=== PATIENT | male | born 1995 | race Two or more races ===

== ENCOUNTER 2017-06-08 16:43 | Emergency (ER) | payer OTHER ==
[~2017-06-08] VITALS: Ht 182.9 cm; Wt 90.0 kg
[2017-06-08 16:50] VITALS: Ht 182.9 cm; Wt 90.0 kg
[2017-06-08] MEDS ORDERED: METOCLOPRAMIDE 10 MG INJ IV STA (17:27)
[2017-06-08] MEDS ORDERED: DIPHENHYDRAMINE 50 MG INJ IV ONE (17:30)
[2017-06-08 18:23] LABS: ADD SCAN DIFF NO
[2017-06-08 18:24] LABS: BASOPHILS % 0.2 % (0.0-2.0); EOSINOPHILS % 0.2 % (0.0-7.0); HEMATOCRIT 45.6 % (42.0-52.0); HEMOGLOBIN 15.6 g/dl (14.0-18.0); LYMPHOCYTES # 1.9 10^3/ul (0.8-2.9); LYMPHOCYTES % 14.3 % (15.0-51.0); MEAN CORPUSCULAR HEMOGLOBIN 30.2 pg (29.0-33.0); MEAN CORPUSCULAR HGB CONC 34.2 g/dl (32.0-37.0); MEAN CORPUSCULAR VOLUME 88.2 fl (82.0-101.0); MEAN PLATELET VOLUME 8.4 fl (7.4-10.4); MONOCYTE # 1.4 10^3/ul (0.3-0.9); MONOCYTES % 10.5 % (0.0-11.0); NEUTROPHIL # 9.8 10^3/ul (1.6-7.5); NEUTROPHILS % 74.4 % (39.0-77.0); PLATELET COUNT 232 10^3/UL (140-415); RED BLOOD COUNT 5.17 10^6/ul (4.70-6.10); RED CELL DISTRIBUTION WIDTH 12.1 % (11.5-14.5); WHITE BLOOD COUNT 13.2 10^3/ul (4.8-10.8)
[2017-06-08 18:44] LABS: ALBUMIN 5.2 g/dl (3.3-4.9); ALBUMIN/GLOBULIN RATIO 1.73; BILIRUBIN,INDIRECT 0.7 mg/dl (0-1.1); BILIRUBIN,TOTAL 0.7 mg/dl (0.2-1.3); CREATININE 1.12 mg/dl (0.61-1.24); POTASSIUM 4.3 mmol/L (3.5-5.1); TOTAL PROTEIN 8.2 g/dl (6.1-8.1)
--- NOTE | 2017-06-08 18:59 | RADRPT ---
PROCEDURE: CT Brain without contrast. CLINICAL INDICATION: headache TECHNIQUE: A CT of the brain was performed on a multidetector CT scanner utilizing axial imaging f rom the skull base through the vertex without IV contrast. Multiplanar reformatted images were made . Images were reviewed on a PACS workstation. The CTDIvol is 44 mGy and the DLP is or 720 mGycm. COMPARISON: None FINDINGS: There is no intracranial hemorrhage, mass effect, or midline shift. No extra-axial fluid collection is seen. The ventricles and sulci are normal in size and configuration. The density of the brain is normal, and the franklin white matter differentiation appears well-preserved. The visualized paranasal sinuses and osseous structures are grossly unremarkable. IMPRESSION: 1. No evidence of acute intracranial pathology. 2. The brain is normal in appearance. .Rayshawn Vale MD, MD Date Time Electronically viewed and signed by .Rayshawn Vale MD, on 06/08/2017 18:59 .A/
[2017-06-08] MEDS ORDERED: ONDANSETRON 4 MG INJ IV STA (19:16)
[2017-06-08] MEDS ORDERED: KETOROLAC 30 MG INJ IV STA (19:16)
[2017-06-08] MEDS ORDERED: NAPR-260 PO (19:19)
[2017-06-08] MEDS ORDERED: BEN25 PO (19:19)
--- NOTE | 2017-06-08 19:27 | ERD ---
ER Documentation Chief Complaint Date/Time DATE: 06/08/17 TIME: 19:22 Chief Complaint RAIN HPI 22-year-old male patient with no significant past medical history presents to the ED complaining of a frontal headache that started yesterday. States that he had 3 episodes of nonbilious nonbloody vomiting. Denies any diarrhea, chest pain, shortness of breath, abdominal pain, weakness, numbness or tingling, dizziness. Denies any head or neck injuries. Denies any seizures or loss of consciousness. ROS All systems reviewed and are negative except as per history of present illness. Medications Home Meds Active Scripts Naproxen* (Naprosyn*) 500 Mg Tablet, 500 MG PO BID Y for PAIN AND/OR INFLAMMATION, #30 TAB take with food Prov:INGA GALVAN PA-C 06/08/17 Diphenhydramine Hcl* (Benadryl*) 25 Mg Cap, 25 MG PO Q6, #30 CAP Prov:INGA GALVAN PA-C 06/08/17 Allergies Allergies: Coded Allergies: No Known Drug Allergies (Verified Allergy, 08/10/11) PMhx/Soc Medical and Surgical Hx: pt denies Medical Hx, pt denies Surgical Hx History of Surgery: No Anesthesia Reaction: No Hx Neurological Disorder: No Hx Respiratory Disorders: No Hx Cardiac Disorders: No Hx Psychiatric Problems: No Hx Miscellaneous Medical Probl: No Hx Alcohol Use: No Hx Substance Use: No Hx Tobacco Use: Yes (1/2 PK PER DAY) Smoking Status: Current every day smoker Physical Exam Vitals Vital Signs Date Time Temp Pulse Resp B/P Pulse Ox O2 Delivery O2 Flow Rate FiO2 06/08/17 16:50 100.0 90 18 136/76 99 Physical Exam Const: [id number], well-nourished. In no acute distress. Head: Atraumatic, normocephalic Eyes: Normal Conjunctiva without injection. No purulent discharge. PERRLA. EOMI ENT: Normal external ear. Ear canal without erythema. Tympanic membrane pearly franklin without effusion or bulging. Nasal canal clear with normal turbinates. Moist oropharynx without tonsillar exudates. Non-erythematous pharynx. Uvula midline. No drooling. No trismus. Neck: No cervical midline tenderness. Full range of motion. No meningismus. No cervical lymphadenopathy. No JVD. Resp: Clear to auscultation bilaterally. No wheezing, rhonchi, rales, or crackles. No accessory muscle use. No retractions. Cardio: Regular rate and rhythm. No murmurs, rubs or gallops. Abd: Soft, non tender, non distended. Normal bowel sounds. No palpable masses. No rebound tenderness. No guarding. Negative McBurney's Point. Negative Olguin's Sign. Skin: Normal skin turgor. No petechiae or rashes Back: No midline tenderness. No CVA tenderness. Ext: No cyanosis, or edema. Distal pulses intact bilaterally. Neur: Awake and alert. Normal gait. Normal coordination. Cranial Nerves II- VII intact. Normal finger to nose. Muscle strength 5/5. Sensation intact. Psych: Normal Mood and Affect Results 24 hrs Laboratory Tests Test 06/08/17 17:50 White Blood Count 13.210^3/ul Red Blood Count 5.1710^6/ul Hemoglobin 15.6g/dl Hematocrit 45.6% Mean Corpuscular Volume 88.2fl Mean Corpuscular Hemoglobin 30.2pg Mean Corpuscular Hemoglobin Concent 34.2g/dl Red Cell Distribution Width 12.1% Platelet Count 87582^3/UL Mean Platelet Volume 8.4fl Neutrophils % 74.4% Lymphocytes % 14.3% Monocytes % 10.5% Eosinophils % 0.2% Basophils % 0.2% Nucleated Red Blood Cells % 0.0/100WBC Neutrophils # 9.810^3/ul Lymphocytes # 1.910^3/ul Monocytes # 1.410^3/ul Eosinophils # 0.010^3/ul Basophils # 0.010^3/ul Nucleated Red Blood Cells # 0.010^3/ul Sodium Level 138mmol/L Potassium Level 4.3mmol/L Chloride Level 102mmol/L Carbon Dioxide Level 23mmol/L Anion Gap 17 Blood Urea Nitrogen 14mg/dl Creatinine 1.12mg/dl Glucose Level 97mg/dl Calcium Level 10.0mg/dl Total Bilirubin 0.7mg/dl Direct Bilirubin 0.00mg/dl Indirect Bilirubin 0.7mg/dl Aspartate Amino Transf (AST/SGOT) 33IU/L Alanine Aminotransferase (ALT/SGPT) 61IU/L Alkaline Phosphatase 129IU/L Total Protein 8.2g/dl Albumin 5.2g/dl Globulin 3.00g/dl Albumin/Globulin Ratio 1.73 Lipase 44U/L Current Medications Medications (Trade) Dose Ordered Sig/Pasha Route PRN Reason Start Time Stop Time Status Last Admin Dose Admin Metoclopramide HCl (Reglan) 10 mg ONCE STAT IV 06/08/17 17:27 06/08/17 17:30 DC 06/08/17 18:16 Diphenhydramine HCl (Benadryl) 25 mg ONCE ONCE IV 06/08/17 17:30 06/08/17 17:31 DC 06/08/17 18:16 Ondansetron HCl (Zofran Inj) 4 mg ONCE STAT IV 06/08/17 19:16 06/08/17 19:17 DC 06/08/17 19:24 Ketorolac Tromethamine (Toradol) 30 mg ONCE STAT IV 06/08/17 19:16 06/08/17 19:17 DC 06/08/17 19:25 Procedures/MDM 22-year-old male patient with no significant past medical history presents the ED complaining of headache. Patient is afebrile and nontoxic-appearing. Patient has normal vital signs. A CBC, CMP, lipase, was ordered to further evaluate patient. Patient was given 1 L of normal saline, 30 mg IV Toradol, 4 mg IV Zofran, 10 mg IV Reglan, 25 mg [address]. A CT was ordered to further evaluate patient since he stated that his headache is severe and he was seen at the hospital yesterday and given Fioricet without relief of his symptoms. CBC:Leukocytosis of 13.2. No e/o anemia CMP: No alkalosis, acidosis, DKA, liver or renal disease Lipase within normal limits. PROCEDURE: CT Brain without contrast. CLINICAL INDICATION: headache TECHNIQUE: A CT of the brain was performed on a multidetector CT scanner utilizing axial imaging from the skull base through the vertex without IV contrast. Multiplanar reformatted images were made. Images were reviewed on a PACS workstation. The CTDIvol is 44 mGy and the DLP is or 720 mGycm. COMPARISON: None FINDINGS: There is no intracranial hemorrhage, mass effect, or midline shift. No extra- axial fluid collection is seen. The ventricles and sulci are normal in size and configuration. The density of the brain is normal, and the franklin white matter differentiation appears well-preserved. The visualized paranasal sinuses and osseous structures are grossly unremarkable. IMPRESSION: 1. No evidence of acute intracranial pathology. 2. The brain is normal in appearance. Differentials include migraine vs tension headache. Low suspicion for intracranial bleed, cluster headache, subarachnoid hemorrhage, meningitis, TIA, stroke, seizures, meningitis, subdural hematoma, epidural hematoma, or other emergent conditions. Discharge medications: Naproxen, Benadryl Follow up with primary care physician in 1-2 days. Instructed patient to return to the ED sooner for any worsening symptoms. Patient's questions were answered. Patient understood and agreed with discharge plan. Patient discharged stable. Departure Diagnosis: Primary Impression: Headache Headache type: unspecified Headache chronicity pattern: unspecified pattern Intractability: not intractable Qualified Code: R51 - Nonintractable headache, unspecified chronicity pattern, unspecified headache type Condition: Stable Patient Instructions: Headache, Unspecified Referrals: REHAN ROBLERO (PCP) [facility] YOU HAVE RECEIVED A MEDICAL SCREENING EXAM AND THE RESULTS INDICATE THAT YOU DO NOT HAVE A CONDITION THAT REQUIRES URGENT TREATMENT IN THE EMERGENCY DEPARTMENT. FURTHER EVALUATION AND TREATMENT OF YOUR CONDITION CAN WAIT UNTIL YOU ARE SEEN IN YOUR DOCTORS OFFICE WITHIN THE NEXT 1-2 DAYS. IT IS YOUR RESPONSIBILITY TO MAKE AN APPOINTMENT FOR FOLOW-UP CARE. IF YOU HAVE A PRIMARY DOCTOR --you should call your primary doctor and schedule an appointment IF YOU DO NOT HAVE A PRIMARY DOCTOR YOU CAN CALL OUR PHYSICIAN REFERRAL HOTLINE AT IF YOU CAN NOT AFFORD TO SEE A PHYSICIAN YOU CAN CHOSE FROM THE FOLLOWING [facility] [address] [facility]. [facility] [address] [facility] [address] [facility] [facility] [address] [facility]. [facility] [address] [facility]. [facility]. [address] [facility]. [facility] YOU HAVE RECEIVED A MEDICAL SCREENING EXAM AND THE RESULTS INDICATE THAT YOU DO NOT HAVE A CONDITION THAT REQUIRES URGENT TREATMENT IN THE EMERGENCY DEPARTMENT. FURTHER EVALUATION AND TREATMENT OF YOUR CONDITION CAN WAIT UNTIL YOU ARE SEEN IN YOUR DOCTORS OFFICE WITHIN THE NEXT 1-2 DAYS. IT IS YOUR RESPONSIBILITY TO MAKE AN APPOINTMENT FOR FOLOW-UP CARE. IF YOU HAVE A PRIMARY DOCTOR --you should call your primary doctor and schedule and appointment IF YOU DO NOT HAVE A PRIMARY DOCTOR YOU CAN CALL OUR PHYSICIAN REFERRAL HOTLINE AT . IF YOU CAN NOT AFFORD TO SEE A PHYSICIAN YOU CAN CHOSE FROM THE FOLLOWING [facility] INSTITUTIONS: [facility] [address] [place] [address] [facility] [address] [place] [address] [facility] [address] [place] [address] [facility] Additional Instructions: Take the Fiorcet prescribed by other hospital facility. Naproxen and benadryl will also be prescribed to you to help with pain and difficulty sleeping. Call your primary care doctor TOMORROW for an appointment during the next day for a referral to see a neurologist. See the doctor sooner or return here if your condition worsens before your appointment time - fever, neck stiffness, worsening symptoms, dizziness, weakness. INGA GALVAN PA-C Jun 08, 2017 19:27
[2017-06-08 19:50] VITALS: BP 127/71; PULSE 61; RESP 16
== END 2017-06-08 19:55 | disposition home or self-care (01) ==
LOC: FTE 16:43
DX: R51 Headache (principal); F17.210 Nicotine dependence, cigarettes, uncomplicated
CPT/HCPCS: 70450; 80053; 83690; 85025; J1200; J1885; J2405; J2765; 36415; 96374; 96375